=== PATIENT | male | born 1995 | race Two or more races ===

== ENCOUNTER 2024-04-27 19:10 | Emergency (ER) | payer OTHER ==
[~2024-04-27] VITALS: Ht 172.7 cm; Wt 88.0 kg
[2024-04-27] MEDS ORDERED: METRONIDAZOLE/SODIUM CHLORIDE 500 MG/100 ML PIGGYBACK IV ONE ×2 (20:30→20:41)
[2024-04-27] MEDS ORDERED: 0.9 % SODIUM CHLORIDE 1,000 ML IV ONE (20:30)
[2024-04-27] MEDS ORDERED: FAMOtidine 10 MG/ML (4ML VIAL) IV ONE (20:30)
[2024-04-27] MEDS ORDERED: CIPROFLOXACIN IN 5 % DEXTROSE 400 MG/200 ML PIGGYBAG IV ONE ×2 (20:30→20:41)
[2024-04-27] MEDS ORDERED: ONDANSETRON HCL 2 MG/ML VIAL IV ONE (20:30)
[2024-04-27] MEDS ORDERED: ONDANSETRON HCL 2 MG/ML VIAL ONE (20:40)
[2024-04-27] MEDS ORDERED: FAMOTIDINE/PF 20 MG/2 ML VIAL ONE (20:41)
[2024-04-27 21:25] LABS: HEMATOCRIT 47.6 % (39.0-48.0); HEMOGLOBIN 16.4 g/dL (13-16.00); MEAN CELL VOLUME 84.5 fL (80.0-100.00); MEAN CORPUSCULAR HEMOGLOBIN 29.2 pg (27.00-32.0); MEAN CORPUSCULAR HGB CONC 34.6 g/dl (32.0-36.0); PLATELET COUNT 259 K/uL (150-450); RED BLOOD COUNT 5.63 M/uL (4.00-6.00); RED CELL DISTRIBUTION WIDTH 14.5 % (11.5-14.5)
[2024-04-27 21:47] LABS: ALBUMIN 4.4 gm/dL (3.4-5.0); BILIRUBIN TOTAL 0.58 mg/dL (0.3-1.2); CALCIUM 8.7 mg/dL (8.5-10.1); CREATININE SERUM 1.15 mg/dL (0.70-1.30); GFR 75.18; GLOBULINA 3.8 G/DL (2.4-3.5); POTASSIUM 4.34 mEq/L (3.5-5.1); TOTAL PROTEIN 8.2 gm/dL (6.4-8.2)
[2024-04-27 22:17] LABS: URINE APPEARANCE Cloudy; URINE BILIRRUBIN Negative (NEGATIVE); URINE BLOOD Negative; URINE COLOR Yellow; URINE GLUCOSE Negative (NEGATIVE); URINE LEUKOCYTE Negative; URINE NITRATE Negative; URINE PROTEIN Trace (NEGATIVE); URINE UROBILINOGEN 0.2 E.U./dl
[2024-04-27 22:22] LABS: URINE BACTERIA 62.4 uL (0.0-1933); URINE EPITHELIAL CELLS 8.2 uL (0.0-38.8); URINE RBC 6.4 uL (0.0-20.8); URINE WBC 4.2 uL (0.0-23.2)
[2024-04-27 22:32] LABS: URINE CAST 1.03 uL (0.0-1.40); URINE KETONE 40 (NEGATIVE)
[2024-04-27] MEDS ORDERED: PEPCID AC20 MG PO (23:43)
[2024-04-27] MEDS ORDERED: CIPRO500 MG PO (23:43)
[2024-04-27] MEDS ORDERED: ZOFRAN8 MG PO (23:43)
[2024-04-27] MEDS ORDERED: PROBIOTIC1 EAC2 PO (23:43)
[2024-04-27] MEDS ORDERED: METRONIDAZOLE500 MG PO (23:43)
[2024-04-27] MEDS ORDERED: ONDANSETRON HCL 2 MG/ML VIAL IM ONE (23:45)
[2024-04-28] MEDS ORDERED: ONDANSETRON HCL 2 MG/ML VIAL ONE (00:55)
== END 2024-04-28 01:04 | disposition home or self-care (01) ==
LOC: ER 19:13
PROVIDERS: General Practice
DX: A04.8 Other specified bacterial intestinal infections (principal); Z88.6 Allergy status to analgesic agent; Z91.013 Allergy to seafood; R55 Syncope and collapse